=== PATIENT | female | born 1930 | race Caucasian/White ===

== ENCOUNTER 2018-09-23 03:15 | Inpatient (IN) | payer MEDICARE ==
[2018-09-23] MEDS ORDERED: HYDROcodone/APAP 5-325MG 1 EACH TAB PO STA (03:49)
--- NOTE | 2018-09-23 03:56 | ED ---
Back Pain HPI - General Chief Complaint: Back Pain/Injury Stated Complaint: fall Time Seen by Provider: 09/23/18 03:25 Source: patient, family Limitations: no limitations - History of Present Illness Initial Comments: This patient is a 88-year-old woman who presents to be evaluated for mid and low back pain. The patient states that she has had is pains for approximately 5 years, since she had a fall on a treadmill. She has been having worsening pain over the past few months but then had a fall on Saturday and since that time her activity at home has been limited due to the pain. The patient indicates mid and low back pain that is worse if she attempts to stand or move. She therefore has not been getting up even to use the bathroom. She is requiring family assistance for help. The patient has not had any change in urination or bowel movements, and she is not having any new weakness or numbness of the legs. She does state that she has some chronic right leg radicular type pain. The patient is on buprenorphine patch and takes Tylenol but the pain continues. No fever. MD Complaint: back pain, fall Onset/Timin -: days(s) Similar Symptoms Previously: Yes Place: home Radiation: right leg Severity: severe Quality: aching Consistency: constant Improves With: immobilization Worsens With: movement, walking Context: fall Associated Symptoms: denies other symptoms - Related Data Allergies Allergy/AdvReac Type Severity Reaction Status Date / Time estradiol [From Estrace] Allergy Dyspnea Verified 09/23/18 03:28 Review of Systems ROS Statement: Those systems with pertinent positive or pertinent negative responses have been documented in the HPI. ROS Other: All systems not noted in ROS Statement are negative. Constitutional: Denies: fever, chills, weakness Respiratory: Denies: cough, dyspnea Cardiovascular: Denies: chest pain, edema Gastrointestinal: Reports: constipation (Chronic). Denies: abdominal pain, vomiting, diarrhea Genitourinary: Denies: dysuria, frequency, hematuria Musculoskeletal: Reports: as per HPI, back pain Skin: Denies: rash Neurological: Denies: headache, weakness, numbness Past Medical History Past Medical History: Diabetes Mellitus, Hyperlipidemia, Hypertension, Thyroid Disorder Additional Past Medical History / Comment(s): parkinson's, History of Any Multi-Drug Resistant Organisms: None Reported Past Surgical History: Appendectomy, Cholecystectomy, Hysterectomy Past Psychological History: No Psychological Hx Reported Smoking Status: Never smoker Past Alcohol Use History: None Reported Past Drug Use History: None Reported General Exam Limitations: no limitations General appearance: alert, in no apparent distress Head exam: Present: atraumatic, normocephalic Eye exam: Present: normal appearance. Absent: scleral icterus, conjunctival injection Neck exam: Present: normal inspection, full ROM. Absent: tenderness Respiratory exam: Present: normal lung sounds bilaterally. Absent: respiratory distress, wheezes, rales, rhonchi, stridor Cardiovascular Exam: Present: regular rate, normal rhythm, normal heart sounds. Absent: systolic murmur, diastolic murmur, rubs, gallop GI/Abdominal exam: Present: soft. Absent: distended, tenderness, guarding, rebound Extremities exam: Present: normal inspection, normal capillary refill. Absent: pedal edema, calf tenderness Back exam: Present: vertebral tenderness. Absent: CVA tenderness (R), CVA tenderness (L) Skin exam: Present: warm, dry, intact, normal color. Absent: rash Course Vital Signs 09/23/18 03:16 Temperature 97.9 F Pulse Rate 75 Respiratory 20 Rate Blood Pressure 146/84 O2 Sat by Pulse 96 Oximetry Medical Decision Making - Lab Data Result diagrams: 09/23/18 05:00 09/23/18 05:00 Lab Results 09/23/18 09/23/18 Range/Units 05:00 05:00 WBC 9.6 (3.8-10.6) k/uL RBC 4.02 (3.80-5.40) m/uL Hgb 12.8 (11.4-16.0) gm/dL Hct 37.4 (34.0-46.0) % MCV 93.0 (80.0-100.0) fL MCH 31.7 (25.0-35.0) pg MCHC 34.1 (31.0-37.0) g/dL RDW 13.9 (11.5-15.5) % Plt Count 158 (150-450) k/uL Neutrophils % 74 % Lymphocytes % 15 % Monocytes % 7 % Eosinophils % 1 % Basophils % 0 % Neutrophils # 7.1 (1.3-7.7) k/uL Lymphocytes # 1.5 (1.0-4.8) k/uL Monocytes # 0.6 (0-1.0) k/uL Eosinophils # 0.1 (0-0.7) k/uL Basophils # 0.0 (0-0.2) k/uL Sodium 132 L (137-145) mmol/L Potassium 4.5 (3.5-5.1) mmol/L Chloride 100 (98-107) mmol/L Carbon Dioxide 24 (22-30) mmol/L Anion Gap 8 mmol/L BUN 41 H (7-17) mg/dL Creatinine 1.57 H (0.52-1.04) mg/dL Est GFR (CKD-EPI)AfAm 34 (>60 ml/min/1.73 sqM) Est GFR (CKD-EPI)NonAf 30 (>60 ml/min/1.73 sqM) Glucose 167 H (74-99) mg/dL Calcium 9.3 (8.4-10.2) mg/dL Disposition Clinical Impression: Thoracic back pain, T11 vertebral fracture Disposition: ADMITTED IP TO THIS HOSP Condition: Fair Referrals: Rory Woo MD [Primary Care Provider] - 1-2 days
--- NOTE | 2018-09-23 04:31 | CT ---
EXAMINATION TYPE: CT thor lumbar spine wo con DATE OF EXAM: 09/23/2018 COMPARISON: 06/26/1710 HISTORY: back pain after fall CT DLP: 1045 mGycm Automated exposure control for dose reduction was used. FINDINGS: There is osteopenia. There is 20% anterior wedging of L4 vertebral body. This appears old. There is 5 0% anterior wedging of T12 vertebral body. There is 20% wedging of T11. T11 fracture could be acute. T12 fracture is probably old.. There is no paraspinal mass. There is nondisplaced fracture of the pos terior right ninth rib at the costovertebral junction. There is cortical buckling of right posterior 11th rib at the costovertebral junction that could be old. There is 15% wedging of T3 vertebra that appears old. There is L5 spondylolysis with a minimal 5 mm L5-S1 spondylolisthesis. IMPRESSION: MULTIPLE COMPRESSION FRACTURES ABOVE. T11 FRACTURE COULD BE AN ACUTE FRACTURE. ACUTE FRACTURE OF T HE RIGHT POSTERIOR NINTH RIB AT THE COSTOVERTEBRAL JUNCTION.
[2018-09-23 05:47] LABS: Calcium 9.3 mg/dL (8.4-10.2); Potassium 4.5 mmol/L (3.5-5.1)
[2018-09-23 05:53] LABS: Basophils % (A) 0 %; Eosinophils # (A) 0.1 k/uL (0-0.7); Eosinophils % (A) 1 %; HCT 37.4 % (34.0-46.0); HGB 12.8 gm/dL (11.4-16.0); Lymphocytes # (A) 1.5 k/uL (1.0-4.8); Lymphocytes % (A) 15 %; MCH 31.7 pg (25.0-35.0); MCHC 34.1 g/dL (31.0-37.0); Mean Platelet Volume 8.6; Monocytes # (A) 0.6 k/uL (0-1.0); Monocytes % (A) 7 %; Neutrophils # (A) 7.1 k/uL (1.3-7.7); Neutrophils % (A) 74 %; Platelet Count 158 k/uL (150-450); RBC 4.02 m/uL (3.80-5.40); RDW 13.9 % (11.5-15.5); WBC 9.6 k/uL (3.8-10.6)
[2018-09-23] MEDS ORDERED: NALOXONE 0.4 MG/ML 1 ML VIAL IV PRN (06:08)
[2018-09-23] MEDS ORDERED: MORPHINE SULFATE 4 MG/ML SYRINGE IV PRN (06:11)
[2018-09-23] MEDS ORDERED: SODIUM CHLORIDE 0.9% 1,000 ML IV SCH (06:15)
[2018-09-23 08:23] LABS: Amorphous Sediment,Urine Occasional /hpf; Appearance,Urine Turbid (Clear); Bacteria,Urine Occasional /hpf; Bilirubin,Urine Negative (Negative); Blood,Urine Negative (Negative); Color,Urine Yellow; Glucose,Urine (UA) Negative (Negative); Ketones,Urine Negative (Negative); Leukocyte Esterase,Urine Small (Negative); Mucus,Urine Rare /hpf; Nitrite,Urine Positive (Negative); Protein,Urine Trace (Negative); Specific Gravity,Urine 1.015 (1.001-1.035); Squamous Epithelial Cell,Urine 1 /hpf (0-4); Triple Phosphate Crystal,Urine Few /hpf; Urobilinogen,Urine <2.0 mg/dL (<2.0); WBC,Urine 3 /hpf (0-5)
[2018-09-23] MEDS: HYDROcodone/APAP 5-325MG 1 EACH TAB PO PRN ×2 (10:43→16:31)
[2018-09-23] MEDS ORDERED: CARBIDOPA-LEVODOPA ER 50-200MG 1 EACH TABLET.ER PO SCH (13:00)
[2018-09-23] MEDS ORDERED: LORazepam 0.5 MG TAB PO PRN (13:00)
[2018-09-23] MEDS ORDERED: CARBIDOPA-LEVODOPA 25-100 MG 1 EACH TAB PO SCH (13:00)
[2018-09-23] MEDS: PROPRANOLOL 40 MG TAB PO SCH (15:41)
[2018-09-23] MEDS: AMANTADINE HCL 100 MG CAP PO SCH (15:41)
[2018-09-23] MEDS: LEVOTHYROXINE 50 MCG TAB PO SCH (15:42)
[2018-09-23 17:15] LABS: Glucose,Whole Blood 153 mg/dL (75-99)
[2018-09-23 20:29] LABS: Glucose,Whole Blood 211 mg/dL (75-99)
[2018-09-23] MEDS ORDERED: LACTULOSE 20 GM/30 ML CUP PO PRN (21:58)
[2018-09-23] MEDS ORDERED: MELATONIN 3 MG TABLET PO PRN (21:58)
[2018-09-23] MEDS ORDERED: MAGNESIUM HYDROXIDE 2,400 MG/10 ML CUP PO PRN (21:58)
[2018-09-23] MEDS ORDERED: ALPRAZolam 0.25 MG TAB PO PRN (21:58)
[2018-09-23] MEDS ORDERED: ACETAMINOPHEN TAB 325 MG TAB PO PRN (21:58)
[2018-09-23] MEDS ORDERED: ONDANSETRON 4 MG/2 ML VIAL IVP PRN (21:58)
[2018-09-23] MEDS: ATORVASTATIN 10 MG TAB PO SCH (22:10)
[2018-09-23] MEDS: CARBIDOPA-LEVODOPA 25-100 MG 1 EACH TAB PO SCH (22:10)
[2018-09-23] MEDS: CARBIDOPA-LEVODOPA ER 50-200MG 1 EACH TABLET.ER PO SCH (22:10)
[2018-09-23] MEDS: BACLOFEN 10 MG TAB PO SCH (22:14)
[2018-09-23] MEDS: traMADol 50 MG TAB PO SCH (22:14)
[2018-09-23] MEDS: ACETAMINOPHEN TAB 325 MG TAB PO SCH (22:14)
[2018-09-23] MEDS: LACTATED RINGERS 1,000 ML IV SCH (22:44)
--- NOTE | 2018-09-23 23:53 | HP ---
HISTORY AND PHYSICAL DATE OF ADMISSION: September 23, 2018. DATE OF SERVICE: September 23, 2018. PRESENTING COMPLAINT: Back pain. HISTORY OF PRESENTING COMPLAINT: This is a very pleasant 88-year-old patient of Dr. Woo. Chronic stable medical conditions include hypothyroid, Parkinson disease, osteoarthritis, chronic kidney disease stage III. The patient fell about 5 years ago, has been having back pain. The patient again fell about 5 to 6 days ago, fell backwards. There was no loss of consciousness, having increasing pain in the lower back, not able to ambulate much. The patient does make urine. Does have a bowel movement. Patient is tolerating a diet. No fever. No chills. Because of increased incapacitation, patient is brought in by the daughter. The patient otherwise normally uses a walker. CT scan showed fractures of multiple age maybe one being acute at T11. The patient has used a brace in the past, but does not has not used one for quite a while. REVIEW OF SYSTEMS: CONSTITUTIONAL: Tired. HEENT decreased hearing. RESPIRATORY: None. CARDIOVASCULAR: None. GENITOURINARY: None. MUSCULOSKELETAL: Pain in several joints including the back. DERMATOLOGICAL, HEMATOLOGIC, LYMPHATICS: none. PSYCHIATRY none. NEUROLOGICAL: None. MUSCULOSKELETAL: Tremors. PAST MEDICAL HISTORY: Past medical history of hyperlipidemia, osteoarthritis, hyperthyroid, chronic right leg complaints, chronic kidney disease. SOCIAL HISTORY: Does use a walker. Resides with daughter and son-in-law. No smoking. Alcohol rarely. FAMILY HISTORY: Father had heart problems in his 80s. HOME MEDICATIONS: Vitamin E 1000 units p.o. daily, vitamin D3 1000 units p.o. daily, Inderal 40 mg before lunch. Synthroid 50 mcg a day, Gingko 60 mg p.o. daily. Ativan 0.5 daily p.r.n. Sinemet CR 50/200 one tablet p.o. a.c. b.i.d. and 20/100 2 tablets p.o. b.i.d., Lipitor 110 mg p.o. q.h.s. 5 mcg an hour 1 patch topical Fridays, Symmetrel 100 mg p.o. daily. ALLERGIES: ESTRACE. PHYSICAL EXAMINATION: VITAL SIGNS: Vital signs on presentation, temperature 97.7, on examination temperature 97.9, pulse 95, respiration 20, blood pressure 146/84, pulse ox 96% on room air. GENERAL APPEARANCE: Average build, lying in bed, awake. EYES: Pupils equal, conjunctivae normal. HEENT: External appearance of nose and ears normal. Oral cavity normal. Decreased hearing. NECK JVD not raised. Mass not palpable. RESPIRATORY: Effort normal. LUNGS: Slightly decreased breath sounds. CARDIOVASCULAR: 1st and 2nd sounds normal. No edema. ABDOMEN: Soft, nontender. Liver and spleen not palpable. LYMPHATICS: No lymph nodes palpable in the neck and axilla. PSYCHIATRY: Alert and oriented x3. Mood and affect slightly anxious. NEUROLOGICAL: The patient has got tremors, some bradykinesia. MUSCULOSKELETAL: Severe osteoarthritis, especially hands and knees. NEUROLOGICAL: Pupils equal. No facial asymmetry. Tremors are present. The patient is barely able to lift the legs off the bed, she has tenderness over the spine. INVESTIGATIONS: White count 9.6, hemoglobin 12.8, platelets normal. Potassium 4.5, BUN 41, creatinine 1.57. Accu-Cheks 153, 211. Thoracolumbar spine CT shows fractures at multiple sites, may be an acute one at T11 and also possible right posterior ninth rib. ASSESSMENT: 1. Acute T11 fracture secondary to fall. 2. Chronic multiple fractures of the lumbar body. 3. Baseline gait dysfunction uses a walker. 4. Hyperlipidemia. 5. Primary osteoarthritis. 6. Hypothyroid. PLAN: Given the patient's age and fractures chronic at multiple levels the patient probably will not be a surgical candidate for pain and symptom control. We will use a K-pad, baclofen for muscle spasm and Ultram for pain control and now including Tylenol. This was discussed with the patient. Also get opinion from Dr. King of Orthopedics. PT/OT also been consulted. Other home medications to be resumed. Care was discussed. Questions were answered. Copy to Dr. Woo. MMODL / GERIN: [id number] /
[2018-09-24] MEDS: ACETAMINOPHEN TAB 325 MG TAB PO SCH ×4 (00:05→17:15)
[2018-09-24] MEDS: LEVOTHYROXINE 50 MCG TAB PO SCH (06:02)
[2018-09-24 07:50] LABS: Glucose,Whole Blood 150 mg/dL (75-99)
[2018-09-24] MEDS: AMANTADINE HCL 100 MG CAP PO SCH (08:08)
[2018-09-24] MEDS: BACLOFEN 10 MG TAB PO SCH ×3 (08:08→17:15)
[2018-09-24] MEDS: ENOXAPARIN 30 MG/0.3 ML SYRINGE SQ SCH (08:08)
[2018-09-24] MEDS: CARBIDOPA-LEVODOPA ER 50-200MG 1 EACH TABLET.ER PO SCH ×2 (08:08→17:15)
[2018-09-24] MEDS: CARBIDOPA-LEVODOPA 25-100 MG 1 EACH TAB PO SCH ×2 (08:08→17:15)
[2018-09-24] MEDS: VITAMIN E (DL,TOCOPHERYL ACET) 400 UNIT CAP PO SCH (08:08)
[2018-09-24] MEDS: traMADol 50 MG TAB PO SCH ×4 (08:09→22:41)
[2018-09-24] MEDS: LACTATED RINGERS 1,000 ML IV SCH ×2 (08:12→17:24)
[2018-09-24 09:37] LABS: Calcium 9.1 mg/dL (8.4-10.2); Potassium 4.4 mmol/L (3.5-5.1)
[2018-09-24 11:40] LABS: Glucose,Whole Blood 188 mg/dL (75-99)
[2018-09-24] MEDS: PROPRANOLOL 40 MG TAB PO SCH (12:19)
--- NOTE | 2018-09-24 14:28 | P.CNOR ---
<Karel Vital - Last Filed: 09/24/18 14:22> History of Present Illness - [facility] Consult date: 09/24/18 Requesting physician: Balbir Pugh Consult reason: fracture (T11 compression fracture), back pain (Acute on chronic back pain; thoracic back pain) History of present illness: Patient is a very pleasant 88-year-old female who is a poor historian who is seen and examined the bedside for further evaluation of significant back pain. She is known have chronic back pain. She states she does not know of previously being diagnosed with any fractures within her spine. Her pain is most significant at the thoracic spine. She has difficulty with any mobility or increased activities due to exacerbation of back pain. She denies any pain at the ribs. She states her pain is exacerbated with coughing and sneezing. Patient did have a recent fall and has had exacerbation of thoracic pain since that time. She admits to a resting tremor which she states she's had for a significant period of time. She does have a history of multiple chronic stable medical diagnoses including hypothyroid, Parkinson's disease, osteoarthritis, and chronic kidney disease stage III. Past Medical History Past Medical History: Diabetes Mellitus, Hyperlipidemia, Osteoarthritis (OA), Renal Disease, Thyroid Disorder Additional Past Medical History / Comment(s): Occasional confusion, mid and low back chronic pain since fall 5 yrs ago, chronic R leg pain, NIDDM type II, hypothyroid, CKD-mild, arthritis in her back. History of Any Multi-Drug Resistant Organisms: None Reported Past Surgical History: Appendectomy, Cholecystectomy, Hysterectomy Additional Past Surgical History / Comment(s): Colonoscopies-normal, bilateral cataracts removed. Additional Past Anesthesia/Blood Transfusion Reaction / Comm: Anesthesia makes pt have increased weakness for awhile. Pt has received blood in past without reaction. Smoking Status: Never smoker - Past Family History Father Additional Family Medical History / Comment(s): Father had heart trouble and lived to be 87yrs. Mother Family Medical History: No Reported History Additional Family Medical History / Comment(s): Mother was healthy and lived to be 84 yrs old. Medications and Allergies Home Medications Medication Instructions Recorded Confirmed Type Amantadine HCl [Symmetrel] 100 mg PO QAM 09/23/18 09/23/18 History Atorvastatin Calcium [Lipitor] 10 mg PO HS 09/23/18 09/23/18 History Buprenorphine [Buprenorphine 5 1 patch TOPICAL FR 09/23/18 09/23/18 History MCG/HR] Carbidopa-Levodopa 25-100 mg 2 tab PO AC-BID 09/23/18 09/23/18 History [Sinemet 25-100 mg] Carbidopa-Levodopa ER 50-200Mg 1 tab PO AC-BID 09/23/18 09/23/18 History [Sinemet CR 50-200 mg] Cholecalciferol [Vitamin D3] 1,000 unit PO DAILY 09/23/18 09/23/18 History Ginkgo Biloba [place] Extract [Ginkgo] 60 mg PO DAILY 09/23/18 09/23/18 History LORazepam [Ativan] 0.5 mg PO DAILY PRN 09/23/18 09/23/18 History Levothyroxine Sodium [Synthroid] 50 mcg PO DAILY 09/23/18 09/23/18 History Propranolol [Inderal] 40 mg PO PC-LUNCH 09/23/18 09/23/18 History Vitamin E 1,000 unit PO DAILY 09/23/18 09/23/18 History Allergies Allergy/AdvReac Type Severity Reaction Status Date / Time estradiol [From Estrace] Allergy Dyspnea Verified 09/23/18 07:43 Physical Examination Physical exam: Patient is awake and alert; patient is a poor historian Vital signs stable Good chest excursion with deep inspiration and expiration Abdomen soft nontender Examination of lumbar spine reveals skin is intact with no abrasions, lacerations, or bruises; no erythema, purulence or signs of infection Pain with palpation along the midline of the spine at approximately the thoracolumbar junction Dorsiflexion, plantarflexion, and extensor hallucis longus positive sustained bilaterally Lower extremity strength reduced throughout range of motion bilaterally Significant difficulty with lifting legs independently off the bed bilaterally No lower extremity hyperreflexia bilaterally No signs or symptoms of DVT; no calf pain No pain with internal and external rotation of the hips bilaterally Neurovascularly intact Evidence of resting left upper extremity tremor Results Pertinent studies: CT of the thoracic and lumbar spines: Evidence of osteopenia; T3 wedging with 15 % height loss which appears chronic; T11 compression fracture deformity with approximately 20% height loss which could be acute in nature; T12 compression fracture with approximately 50% height loss is most likely chronic; L4 compression fracture deformity with 20% height loss which appears chronic; osteopenia; nondisplaced fracture of the posterior right 9th rib at the costovertebral junction; cortical buckling of the right posterior 11th rib at the costovertebral junction that could be chronic; L5 spondylolysis with L5-S1 minimal spondylolisthesis - Labs Labs: Abnormal Lab Results - Last 24 Hours (Table) 09/23/18 09/23/18 09/24/18 Range/Units 17:13 20:28 07:29 Sodium (137-145) mmol/L BUN (7-17) mg/dL Creatinine (0.52-1.04) mg/dL Glucose (74-99) mg/dL POC Glucose (mg/dL) 153 H 211 H 150 H (75-99) mg/dL 09/24/18 Range/Units 08:53 Sodium 134 L (137-145) mmol/L BUN 35 H (7-17) mg/dL Creatinine 1.13 H (0.52-1.04) mg/dL Glucose 147 H (74-99) mg/dL POC Glucose (mg/dL) (75-99) mg/dL H & H 09/23/18 Range/Units 05:00 Hgb 12.8 (11.4-16.0) gm/dL Hct 37.4 (34.0-46.0) % Result Diagrams: 09/23/18 05:00 09/24/18 08:53 Assessment and Plan Assessment: Assessment: Acute on chronic thoracic back pain Inability ambulate due to pain T11 compression fracture deformity may be acute in nature given the patient's exacerbation of thoracic pain and recent fall that correlate with imaging findings Multiple thoracolumbar compression fracture deformities of indeterminate age at T3, T11, T12, L4 Nondisplaced fracture of the posterior right 9th rib at the costovertebral junction Cortical buckling of the right posterior 11th rib at the costovertebral junction that could be chronic L5 spondylolysis L5-S1 minimal spondylolisthesis Osteopenia History of Parkinson's disease, hypothyroidism, and chronic kidney disease stage III (1) Unable to ambulate Current Visit: Yes Status: Acute Code(s): R26.2 - DIFFICULTY IN WALKING, NOT ELSEWHERE CLASSIFIED SNOMED Code(s): 649536451 (2) Compression fracture of thoracic vertebra Current Visit: Yes Status: Acute Code(s): S22.000A - WEDGE COMPRESSION FRACTURE OF UNSP THORACIC VERTEBRA, INIT SNOMED Code(s): 079665264 (3) Compression fracture of L4 vertebra Current Visit: Yes Status: Acute Code(s): S32.040A - WEDGE COMPRESSION FRACTURE OF FOURTH LUMBAR VERTEBRA, INIT SNOMED Code(s): 278746921 (4) Lumbar spondylolysis Current Visit: Yes Status: Acute Code(s): M43.06 - SPONDYLOLYSIS, LUMBAR REGION SNOMED Code(s): 478450381 (5) Spondylolisthesis of lumbosacral region Current Visit: Yes Status: Acute Code(s): M43.17 - SPONDYLOLISTHESIS, LUMBOSACRAL REGION SNOMED Code(s): 376109603 (6) Ribs, multiple fractures Current Visit: Yes Status: Acute Code(s): S22.49XA - MULTIPLE FRACTURES OF RIBS, UNSP SIDE, INIT FOR CLOS FX SNOMED Code(s): 4890093 (7) Intractable back pain Current Visit: Yes Status: Acute Code(s): M54.9 - DORSALGIA, UNSPECIFIED SNOMED Code(s): 550136238 (8) History of Parkinson's disease Current Visit: Yes Status: Acute Code(s): Z86.69 - PERSONAL HISTORY OF DIS OF THE NERVOUS SYS AND SENSE ORGANS SNOMED Code(s): 478690377 (9) History of hypothyroidism Current Visit: Yes Status: Acute Code(s): Z86.39 - PERSONAL HISTORY OF ENDO , NUTRITIONAL AND METABOLIC DISEASE SNOMED Code(s): 250668743 (10) History of chronic kidney disease Current Visit: Yes Status: Acute Code(s): Z87.448 - PERSONAL HISTORY OF OTHER DISEASES OF URINARY SYSTEM SNOMED Code(s): 421948506 (11) T11 vertebral fracture Current Visit: Yes Status: Acute Code(s): S22.089A - UNSP FRACTURE OF T11- T12 VERTEBRA, INIT FOR CLOS FX SNOMED Code(s): 209399149 (12) Thoracic back pain Current Visit: Yes Status: Acute Code(s): M54.6 - PAIN IN THORACIC SPINE SNOMED Code(s): 037073318 Plan: Plan: 1. After reviewing of imaging, physical examination of the patient, and further discussion with the patient, we will currently plan to have the patient work through conservative treatment. She does have multiple compression fracture deformities at T3, T11, T12, and L4 of indeterminate age but patient does have evidence of changes in which the T11 fracture may be acute. The patient is experiencing increased pain at approximately the thoracolumbar junction. She is known have chronic pain but has had an exacerbation of acute on chronic pain with significant difficulty with movement of the spine and ambulation following her recent fall approximately 5-6 days ago. Her pain is exacerbated with coughing and sneezing. She has difficulty moving her bilateral lower extremities due to pain. She does not ambulate much. Patient is somewhat of a poor historian. She states she is not known have previous compression fracture deformities at her spine. At this time, we'll plan to order a Spinomed TLSO brace. A prescription has been written for this brace and provide his case management. Once this brace is delivered and fitted appropriately, patient should wear this brace while sitting upright at greater than 45, during ambulation, while working physical therapy, and during increase activities. Brace does not have to be worn while lying in bed or while bathing. Once this brace is been delivered and fitted appropriately, patient is clear for discharge from an orthopedic spine standpoint. Following discharge, patient follow up with Karel Vital PA-C or Dr. Macho King at [facility] in approximately 2-3 weeks for further evaluation 2. Medicine will continue following the patient for her other medical diagnoses. 3. Continue medications for pain control as prescribed 4. Patient has been discussed in detail with Dr. Macho King and he agrees with this plan Time with Patient: Less than 30 <Darío King - Last Filed: 09/25/18 11:06> Physical Examination Osteopathic Statement: *. No significant issues noted on an osteopathic structural exam other than those noted in the History and Physical/Consult. Results - Labs Labs: Abnormal Lab Results - Last 24 Hours (Table) 09/24/18 09/24/18 09/24/18 Range/Units 11:33 17:05 20:05 Sodium (137-145) mmol/L BUN (7-17) mg/dL Glucose (74-99) mg/dL POC Glucose (mg/dL) 188 H 121 H 126 H (75-99) mg/dL Total Protein (6.3-8.2) g/dL Albumin (3.5-5.0) g/dL 09/24/18 09/25/18 09/25/18 Range/Units 21:02 07:20 08:14 Sodium 132 L 134 L (137-145) mmol/L BUN 32 H 30 H (7-17) mg/dL Glucose 139 H 124 H (74-99) mg/dL POC Glucose (mg/dL) 115 H (75-99) mg/dL Total Protein 6.1 L (6.3-8.2) g/dL Albumin 3.3 L (3.5-5.0) g/dL H & H 09/23/18 09/24/18 Range/Units 05:00 21:02 Hgb 12.8 12.5 (11.4-16.0) gm/dL Hct 37.4 38.8 (34.0-46.0) % Result Diagrams: 09/24/18 21:02 09/25/18 08:14 Assessment and Plan Plan: Imaging in the case reviewed. I agree with the TLSO brace. We'll see if she is able tolerate it along with her rib fracture. We do not plans for surgical intervention and she should be treated conservative pain control and bracing. It is okay for her to mobilize her standpoint and from aspine standpoint it is okay for him to be discharged when she is comfortable from medicine. We can follow-up with her in 2-3 weeks for recheck evaluation as outpatient.
[2018-09-24 17:15] LABS: Glucose,Whole Blood 121 mg/dL (75-99)
[2018-09-24 20:08] LABS: Glucose,Whole Blood 126 mg/dL (75-99)
[2018-09-24 21:18] LABS: Basophils % (A) 1 %; Eosinophils # (A) 0.2 k/uL (0-0.7); Eosinophils % (A) 3 %; HCT 38.8 % (34.0-46.0); HGB 12.5 gm/dL (11.4-16.0); Lymphocytes # (A) 1.2 k/uL (1.0-4.8); Lymphocytes % (A) 16 %; MCH 30.2 pg (25.0-35.0); MCHC 32.3 g/dL (31.0-37.0); MCV 93.5 fL (80.0-100.0); Mean Platelet Volume 7.6; Monocytes # (A) 0.4 k/uL (0-1.0); Monocytes % (A) 5 %; Neutrophils # (A) 5.4 k/uL (1.3-7.7); Neutrophils % (A) 73 %; Platelet Count 195 k/uL (150-450); RBC 4.15 m/uL (3.80-5.40); RDW 13.7 % (11.5-15.5); WBC 7.4 k/uL (3.8-10.6)
--- NOTE | 2018-09-24 21:29 | CT ---
EXAMINATION TYPE: CT brain wo con DATE OF EXAM: 09/24/2018 COMPARISON: None HISTORY: Change in mental status CT DLP: 1144.7 mGycm Automated exposure control for dose reduction was used. FINDINGS: There is cerebral cortical atrophy. There is no mass effect nor midline shift. There is no sign of in tracranial hemorrhage. Calvarium is intact. There is mild hypodensity in the periventricular white ma tter. There is 1 cm mucous retention cyst left maxillary sinus. IMPRESSION: NO ACUTE INTRACRANIAL ABNORMALITY. CEREBRAL ATROPHY AND MILD CHRONIC SMALL VESSEL ISCHEMIA.
[2018-09-24 21:33] LABS: Albumin 3.3 g/dL (3.5-5.0); Calcium 9.1 mg/dL (8.4-10.2); Potassium 4.5 mmol/L (3.5-5.1); Total Bilirubin 0.6 mg/dL (0.2-1.3); Total Protein 6.1 g/dL (6.3-8.2)
[2018-09-24] MEDS: ATORVASTATIN 10 MG TAB PO SCH (22:42)
[2018-09-25] MEDS: BACLOFEN 10 MG TAB PO SCH (00:51)
[2018-09-25] MEDS: ACETAMINOPHEN TAB 325 MG TAB PO SCH ×4 (01:09→17:46)
[2018-09-25] MEDS: LACTATED RINGERS 1,000 ML IV SCH ×2 (06:23→12:28)
[2018-09-25] MEDS: LEVOTHYROXINE 50 MCG TAB PO SCH (06:25)
--- NOTE | 2018-09-25 06:58 | PN ---
PROGRESS NOTE DATE OF SERVICE: 09/24/2018 PRESENT COMPLAINT: Acute on chronic back pain. INTERVAL HISTORY: This patient has multiple medical problems, presented with increasing low back pain. Found to have an acute vertebral fracture also. Daughter is at the bedside when I saw this patient this afternoon. The pain is better controlled, but the patient is more tired. REVIEW OF SYSTEMS: Difficult to do as the patient is talking less. PHYSICAL EXAMINATION: Temperature 96.8 pulse82, respiration 20, blood pressure 130/53, pulse ox 97% on room air. GENERAL APPEARANCE: Lying in bed, awake, tired-appearing. EYES: Pupils equal. Conjunctivae normal. NECK: JVD not raised. Mass not palpable. Respiratory effort increased. LUNGS: Decreased breath sounds. CARDIOVASCULAR: First and second sounds. No edema. ABDOMEN: Soft, nontender. Liver and spleen not palpable. PSYCHIATRY: The patient is awake, talking, less. INVESTIGATIONS: BUN 35, creatinine 1.13. ASSESSMENT: 1. Acute T11 fracture secondary to fall. 2. Chronic multiple fractures, lumbar body. 3. Baseline gait dysfunction using a walker. 4. Hyperlipidemia. 5. Primary osteoarthritis. 6. Hypothyroid. 7. Possible acute metabolic encephalopathy from pain medications. 8. Chronic idiopathic Parkinson's disease. 9. Acute renal failure, likely prerenal from poor oral intake. Creatinine has come down from 1.57 to 0.98. PLAN: Did have a talk with the patient's daughter at the bedside. She wants to take the patient home. Awaiting for the brace. Overall prognosis is guarded. We will see how the patient does. MMODL / IJN: [id number] /
[2018-09-25 07:22] LABS: Glucose,Whole Blood 115 mg/dL (75-99)
[2018-09-25] MEDS: ENOXAPARIN 30 MG/0.3 ML SYRINGE SQ SCH ×2 (08:14→08:15)
[2018-09-25] MEDS: CARBIDOPA-LEVODOPA 25-100 MG 1 EACH TAB PO SCH ×2 (08:15→17:46)
[2018-09-25] MEDS: CARBIDOPA-LEVODOPA ER 50-200MG 1 EACH TABLET.ER PO SCH ×2 (08:16→17:45)
[2018-09-25] MEDS: AMANTADINE HCL 100 MG CAP PO SCH (08:16)
[2018-09-25] MEDS: VITAMIN E (DL,TOCOPHERYL ACET) 400 UNIT CAP PO SCH (08:17)
[2018-09-25] MEDS: traMADol 50 MG TAB PO SCH ×3 (08:18→17:45)
[2018-09-25] MEDS ORDERED: BACLOFEN 10 MG TAB PO SCH (09:00)
[2018-09-25 09:25] LABS: Calcium 9.3 mg/dL (8.4-10.2); Potassium 4.6 mmol/L (3.5-5.1)
[2018-09-25 10:30] VITALS: BMI 24.8
[2018-09-25 12:02] LABS: Glucose,Whole Blood 123 mg/dL (75-99)
[2018-09-25] MEDS: PROPRANOLOL 40 MG TAB PO SCH (12:27)
[2018-09-25] MEDS ORDERED: BACLOFEN 10 MG TAB PO PRN (14:47)
[2018-09-25 17:20] LABS: Glucose,Whole Blood 151 mg/dL (75-99)
[2018-09-25 20:52] LABS: Glucose,Whole Blood 178 mg/dL (75-99)
[2018-09-25] MEDS: ATORVASTATIN 10 MG TAB PO SCH (21:02)
--- NOTE | 2018-09-26 00:43 | PN ---
PROGRESS NOTE DATE OF SERVICE: September 25, 2018. PRESENTING COMPLAINT: Acute on chronic back pain. INTERVAL HISTORY: Patient has multiple medical problems presented with increasing acute low back pain with acute vertebral fracture. The patient is put on baclofen. Patient became rather lethargic yesterday. Did a CT scan that came back negative for stroke. The patient is felt to be metabolic encephalopathy from the baclofen that was held. This morning, when I saw the patient, the patient started to turn around. Answering simple questions. Several family members were present. The patient ate a little bit. REVIEW OF SYSTEMS: Difficult to obtain because of patient's mental status. MEDICATIONS: Current medications: Baclofen was changed to p.r.n. Also getting IV fluids. PHYSICAL EXAMINATION: VITAL SIGNS: Temperature 97.8, pulse 69, respiratory 18, blood pressure 143/67, pulse ox 93 percent on 2 L. GENERAL APPEARANCE: Lying in bed, lethargic but started to answer questions. EYES: Pupil's equal. Conjunctivae normal. NECK JVD unable to assess. Mass not palpable. RESPIRATORY: Effort normal. LUNGS: Decreased breath sounds. CARDIOVASCULAR: 1st and 2nd sounds normal. No edema. ABDOMEN: Soft, nontender. Liver and spleen not palpable. PSYCHIATRY: Lethargic but answers some simple questions. INVESTIGATIONS: Potassium 30, creatinine 0.88. ASSESSMENT: 1. Acute T11 fracture secondary to fall. 2. 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 3. Baseline gait dysfunction using a walker. 4. Hyperlipidemia. 5. Primary osteoarthritis. 6. Hypothyroid. 7. Acute metabolic encephalopathy from pain medications and baclofen. 8. Acute idiopathic Parkinson disease. 9. Acute renal failure prerenal from poor oral intake, now corrected. PLAN: I had a lengthy talk with the patient and several family members at the bedside. The patient's baclofen has been discontinued, changed to p.r.n. Do expect it to turn around by 24 hours. I did explain to the family that physical therapy at this stage could be more hurtful. The patient's daughter who has worked at a intermediate before really wants to take her back home. The hospital bed is being arranged for the same. Prognosis remains guarded. Total time spent today was about 40 minutes with over 25 minutes of discussion. MMODL / IJN: [id number] /
[2018-09-26] MEDS: traMADol 50 MG TAB PO SCH ×3 (02:43→13:44)
[2018-09-26] MEDS: ACETAMINOPHEN TAB 325 MG TAB PO SCH ×3 (02:44→10:42)
[2018-09-26] MEDS: LACTATED RINGERS 1,000 ML IV SCH ×2 (03:10→10:46)
[2018-09-26] MEDS: LEVOTHYROXINE 50 MCG TAB PO SCH (05:24)
[2018-09-26 06:38] VITALS: PULSE 71
[2018-09-26 07:20] LABS: Glucose,Whole Blood 147 mg/dL (75-99)
[2018-09-26] MEDS: AMANTADINE HCL 100 MG CAP PO SCH (08:13)
[2018-09-26] MEDS: CARBIDOPA-LEVODOPA ER 50-200MG 1 EACH TABLET.ER PO SCH ×2 (08:13→16:46)
[2018-09-26] MEDS: VITAMIN E (DL,TOCOPHERYL ACET) 400 UNIT CAP PO SCH (08:13)
[2018-09-26] MEDS: CARBIDOPA-LEVODOPA 25-100 MG 1 EACH TAB PO SCH ×2 (08:14→16:46)
[2018-09-26 08:36] LABS: Calcium 8.9 mg/dL (8.4-10.2); Potassium 4.2 mmol/L (3.5-5.1)
[2018-09-26 12:11] LABS: Glucose,Whole Blood 124 mg/dL (75-99)
[2018-09-26] MEDS ORDERED: BUPRENORPHINE TOPICAL SCH (13:00)
[2018-09-26] MEDS: PROPRANOLOL 40 MG TAB PO SCH (13:44)
[2018-09-26 15:10] VITALS: BP 180/70; RESP 16; TEMP 98.6
[2018-09-26] MEDS ORDERED: METOPROLOL TARTRATE 25 MG TAB PO SCH (21:00)
--- NOTE | 2018-10-01 10:21 | DS ---
DISCHARGE SUMMARY DATE OF ADMISSION: 09/23/2018 DATE OF DISCHARGE: 09/26/2018 FINAL DIAGNOSES: 1. Acute T11 fracture secondary to fall. 2. 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 3. Baseline gait dysfunction, using a walker. 4. Hyperlipidemia. 5. Primary osteoarthritis. 6. Hypothyroid. 7. Acute metabolic encephalopathy from pain medications and baclofen. 8. Chronic idiopathic Parkinson disease. 9. Acute renal failure, prerenal from poor oral intake. CONSULTATION: Dr. King from [facility] HOSPITAL COURSE: This pleasant 88-year-old patient who was cared by her daughter, has had chronic low back pain and again fell about 5 to 6 days ago backwards. There was no bowel or urine involvement. The patient presented with increased pain. CT scan did show fractures of multiple age including more acute on T11. Discussions were held with the family. The daughter does want to take her home as she has done ECF care before. Medications were adjusted. The patient doing reasonably well given condition at the time of discharge. Tolerating some diet. PHYSICAL EXAMINATION: On examination, temperature 98.6, pulse 71, respiration 16, blood pressure 150/70, pulse ox 96% on room air. GENERAL APPEARANCE: Lying in bed, answering simple questions. RESPIRATORY: Effort normal. LUNGS: Fair entry. CARDIOVASCULAR: First and second sounds normal. INVESTIGATIONS: Sodium 132, potassium 4.2, BUN 19, creatinine 0.87. DISCHARGE MEDICATIONS: 1. Amantadine 100 mg p.o. daily. 2. Lipitor 10 mg q.h.s. 3. Buprenorphine 5 one patch topical Saturday. 4. Sinemet 25/100 two tablets a.c. b.i.d. and Sinemet CR 50/200 one tablet a.c. b.i.d. 5. Vitamin D3, 1000 units p.o. daily. 6. Ginkgo 60 mg p.o. daily. 7. Ativan 0.5 mg daily p.r.n. 8. Synthroid 50 mcg p.o. daily. 9. Vitamin E 1000 units p.o. daily. 10.Tylenol 650 mg q.6 p.r.n. 11.Baclofen 5 mg p.o. t.i.d. p.r.n. 12.Lopressor 25 mg b.i.d. 13.Ultram 50 mg q.6 p.r.n. On the day of discharge, patient's medications including Ultram for pain was discussed. Also will use baclofen on a p.r.n. basis. Propranolol, which is very short-acting was discontinued and a longer-acting Lopressor was added. Also patient had a Start Talking Form was done and also MAPS search was done. [facility] will be . The patient also got a TLSO brace. Discussion discharge plan more than 35 minutes. The patient for comfort will need a hospital bed so she can be positioned accordingly. Follow up with Dr. Woo in 3 days. [place]. Follow up with K[facility] in 2 weeks. [facility] is involved. MMODL / IJN: [id number] /
== END 2018-09-26 17:08 | disposition home health service (06) | DRG 551 ==
LOC: EC 03:15 → 4SSUR 06:13 → 4MS4W 06:18
PROVIDERS: ADMIT Hospitalist; ATTEND Hospitalist
DX: S22.089A Unspecified fracture of T11-T12 vertebra, initial encounter for closed fracture (principal); G92 Toxic encephalopathy; S22.31XA Fracture of one rib, right side, initial encounter for closed fracture; N17.9 Acute kidney failure, unspecified; M48.54XA Collapsed vertebra, not elsewhere classified, thoracic region, initial encounter for fracture; E11.22 Type 2 diabetes mellitus with diabetic chronic kidney disease; G20 Parkinson's disease; N18.3 Chronic kidney disease, stage 3 (moderate); M43.17 Spondylolisthesis, lumbosacral region; M85.80 Other specified disorders of bone density and structure, unspecified site; M19.91 Primary osteoarthritis, unspecified site; G89.29 Other chronic pain; E78.5 Hyperlipidemia, unspecified; T42.8X5A Adverse effect of antiparkinsonism drugs and other central muscle-tone depressants, initial encounter; E03.9 Hypothyroidism, unspecified; Z79.890 Hormone replacement therapy; Z79.899 Other long term (current) drug therapy; Z90.49 Acquired absence of other specified parts of digestive tract; Z90.710 Acquired absence of both cervix and uterus; Z98.42 Cataract extraction status, left eye; Z98.41 Cataract extraction status, right eye; W18.39XA Other fall on same level, initial encounter; Z91.81 History of falling; Y92.009 Unspecified place in unspecified non-institutional (private) residence as the place of occurrence of the external cause; Z82.49 Family history of ischemic heart disease and other diseases of the circulatory system; Z88.8 Allergy status to other drugs, medicaments and biological substances
CPT/HCPCS: 36415; 70450; 72128; 72131; 80048; 80053; 81001; 84484; 85025; 99284

== ENCOUNTER 2019-01-31 11:08 | Emergency (ER) | payer MEDICARE ==
[2019-01-31 11:23] LABS: Glucose,Whole Blood 118 mg/dL (75-99)
[2019-01-31 11:26] VITALS: TEMP 98
[2019-01-31] MEDS ORDERED: SODIUM CHLORIDE 0.9% 1,000 ML IV ONE (11:34)
--- NOTE | 2019-01-31 11:40 | ED ---
General Adult HPI - General Chief complaint: Altered Mental Status Stated complaint: Altered Time Seen by Provider: 01/31/19 11:16 Source: family, RN notes reviewed Mode of arrival: wheelchair Limitations: altered mental status - History of Present Illness Initial comments: Patient is a pleasant 88-year-old female presenting to the emergency department with family with concerns for confusion. Patient does have Parkinson's. Patient has been more confused lately. Patient had confusion week or so ago and was taken off bupropion patch. Patient had increase in her chronic back pain and patch was placed again yesterday. Patient slept most the day yesterday and seemed more confused last night. Patient was less talkative. This morning symptoms seemed worse. Patient had limited verbal capability. She was able to state some names. Patient has chronic shaking/tremor associated with her Parkinson's. No new weakness associated. Family states patient frequently gets very confused at nighttime. Patient is not able to offer much significant h istory. History is obtained by family. - Related Data Home Medications Medication Instructions Recorded Confirmed Amantadine HCl [Symmetrel] 100 mg PO QAM 09/23/18 01/31/19 Atorvastatin Calcium [Lipitor] 10 mg PO HS 09/23/18 01/31/19 Buprenorphine [Buprenorphine 5 1 patch TOPICAL FR 09/23/18 01/31/19 MCG/HR] Carbidopa-Levodopa 25-100 mg 1 tab PO AC-BID 09/23/18 01/31/19 [Sinemet 25-100 mg] Carbidopa-Levodopa ER 50-200Mg 1 tab PO AC-LUNCH 09/23/18 01/31/19 [Sinemet CR 50-200 mg] Ginkgo Biloba [place] Extract [Ginkgo] 60 mg PO DAILY 09/23/18 01/31/19 LORazepam [Ativan] 0.5 mg PO DAILY PRN 09/23/18 01/31/19 Levothyroxine Sodium [Synthroid] 50 mcg PO HS 09/23/18 01/31/19 Vitamin E 1,000 unit PO DAILY 09/23/18 01/31/19 Pioglitazone [Actos] 15 mg PO DAILY 01/31/19 01/31/19 Propranolol [Inderal] 40 mg PO DAILY 01/31/19 01/31/19 Allergies Allergy/AdvReac Type Severity Reaction Status Date / Time estradiol [From Estrace] Allergy Dyspnea Verified 01/31/19 11:42 Review of Systems ROS Statement: Those systems with pertinent positive or pertinent negative responses have been documented in the HPI. ROS Other: All systems not noted in ROS Statement are negative. Limitations: ROS unobtainable due to patients medical condition Past Medical History Past Medical History: Diabetes Mellitus, Hyperlipidemia, Osteoarthritis (OA), Renal Disease, Thyroid Disorder Additional Past Medical History / Comment(s): Occasional confusion, mid and low back chronic pain since fall 5 yrs ago, chronic R leg pain, NIDDM type II, hypothyroid, CKD-mild, arthritis in her back. History of Any Multi-Drug Resistant Organisms: None Reported Past Surgical History: Appendectomy, Cholecystectomy, Hysterectomy Additional Past Surgical History / Comment(s): Colonoscopies-normal, bilateral cataracts removed. Additional Past Anesthesia/Blood Transfusion Reaction / Comment(s): Anesthesia makes pt have increased weakness for awhile. Pt has received blood in past without reaction. Past Psychological History: Anxiety Smoking Status: Never smoker - Past Family History Father Additional Family Medical History / Comment(s): Father had heart trouble and l ived to be 87yrs. Mother Family Medical History: No Reported History Additional Family Medical History / Comment(s): Mother was healthy and lived to be 84 yrs old. General Exam Limitations: altered mental status General appearance: alert, in no apparent distress, other (Patient does have significant resting tremor. Family states this is unchanged from chronic.) Head exam: Present: atraumatic Eye exam: Present: normal appearance, PERRL, EOMI. Absent: nystagmus ENT exam: Present: normal oropharynx Neck exam: Present: normal inspection Respiratory exam: Present: normal lung sounds bilaterally Cardiovascular Exam: Present: regular rate, normal rhythm GI/Abdominal exam: Present: soft. Absent: tenderness Extremities exam: Present: normal inspection Neurological exam: Present: alert. Absent: motor sensory deficit Expanded Neurological exam: Present: protecting the airway Patient oriented to: Present: person. Absent: place, time Cranial nerves: EOM's Intact: Normal Motor strength exam: RUE: 5, LUE: 5, RLE: 5, LLE: 5 Eye Response: (4) open spontaneously Motor Response: (6) obeys commands Verbal Response: (3) inappropriate words Psychiatric exam: Present: normal affect, normal mood Skin exam: Present: normal color. Absent: rash Course Vital Signs 01/31/19 01/31/19 11:11 14:03 Temperature 98 F Pulse Rate 105 H 95 Respiratory 20 20 Rate Blood Pressure 156/53 122/102 O2 Sat by Pulse 97 96 Oximetry EKG Findings - EKG Comments: EKG Findings:: Sinus tach at 105 with premature supraventricular complexes. CA 168. QRS 66. QT 344. QTC 454. Normal axis. Normal QRS. No acute ST change. Motion artifact is present. Medical Decision Making - Medical Decision Making Patient reevaluated without much improvement of symptoms. Family updated. Family does request [facility] if transfer is needed. No neurology is available at this time. Case was discussed with Dr. lozoya at [facility], who will accept transfer. - Lab Data Result diagrams: 01/31/19 11:18 01/31/19 11:18 Lab Results 01/31/19 01/31/19 01/31/19 Range/Units 11:12 11:18 11:18 WBC 9.1 (3.8-10.6) k/uL RBC 4.03 (3.80-5.40) m/uL Hgb 12.9 (11.4-16.0) gm/dL Hct 40.0 (34.0-46.0) % MCV 99.4 (80.0-100.0) fL MCH 31.9 (25.0-35.0) pg MCHC 32.1 (31.0-37.0) g/dL RDW 13.5 (11.5-15.5) % Plt Count 302 (150-450) k/uL Neutrophils % 65 % Lymphocytes % 25 % Monocytes % 5 % Eosinophils % 2 % Basophils % 1 % Neutrophils # 5.9 (1.3-7.7) k/uL Lymphocytes # 2.3 (1.0-4.8) k/uL Monocytes # 0.4 (0-1.0) k/uL Eosinophils # 0.2 (0-0.7) k/uL Basophils # 0.1 (0-0.2) k/uL PT (9.0-12.0) sec INR (<1.2) APTT (22.0-30.0) sec Sodium 140 (137-145) mmol/L Potassium 4.7 (3.5-5.1) mmol/L Chloride 108 H (98-107) mmol/L Carbon Dioxide 21 L (22-30) mmol/L Anion Gap 11 mmol/L BUN 29 H (7-17) mg/dL Creatinine 0.90 (0.52-1.04) mg/dL Est GFR (CKD-EPI)AfAm 67 (>60 ml/min/1.73 sqM) Est GFR (CKD-EPI)NonAf 58 (>60 ml/min/1.73 sqM) Glucose 125 H (74-99) mg/dL POC Glucose (mg/dL) 118 H (75-99) mg/dL POC Glu Counter Weigher ID Godfrey, Leonidas Calcium 9.9 (8.4-10.2) mg/dL Total Bilirubin 0.4 (0.2-1.3) mg/dL AST 17 (14-36) U/L ALT 17 (9-52) U/L Alkaline Phosphatase 72 (38-126) U/L Troponin I (0.000-0.034) ng/mL Total Protein 6.4 (6.3-8.2) g/dL Albumin 4.0 (3.5-5.0) g/dL Urine Color Urine Appearance (Clear) Urine pH (5.0-8.0) Ur Specific [place] (1.001-1.035) Urine Protein (Negative) Urine Glucose (UA) (Negative) Urine Ketones (Negative) Urine Blood (Negative) Urine Nitrite (Negative) Urine Bilirubin (Negative) Urine Urobilinogen (<2.0) mg/dL Ur Leukocyte Esterase (Negative) 01/31/19 01/31/19 01/31/19 Range/Units 11:18 11:18 13:57 WBC (3.8-10.6) k/uL RBC (3.80-5.40) m/uL Hgb (11.4-16.0) gm/dL Hct (34.0-46.0) % MCV (80.0-100.0) fL MCH (25.0-35.0) pg MCHC (31.0-37.0) g/dL RDW (11.5-15.5) % Plt Count (150-450) k/uL Neutrophils % % Lymphocytes % % Monocytes % % Eosinophils % % Basophils % % Neutrophils # (1.3-7.7) k/uL Lymphocytes # (1.0-4.8) k/uL Monocytes # (0-1.0) k/uL Eosinophils # (0-0.7) k/uL Basophils # (0-0.2) k/uL PT 9.5 (9.0-12.0) sec INR 0.9 (<1.2) APTT 22.3 (22.0-30.0) sec Sodium (137-145) mmol/L Potassium (3.5-5.1) mmol/L Chloride (98-107) mmol/L Carbon Dioxide (22-30) mmol/L Anion Gap mmol/L BUN (7-17) mg/dL Creatinine (0.52-1.04) mg/dL Est GFR (CKD-EPI)AfAm (>60 ml/min/1.73 sqM) Est GFR (CKD-EPI)NonAf (>60 ml/min/1.73 sqM) Glucose (74-99) mg/dL POC Glucose (mg/dL) (75-99) mg/dL POC Glu Counter Weigher ID Calcium (8.4-10.2) mg/dL Total Bilirubin (0.2-1.3) mg/dL AST (14-36) U/L ALT (9-52) U/L Alkaline Phosphatase (38-126) U/L Troponin I <0.012 (0.000-0.034) ng/mL Total Protein (6.3-8.2) g/dL Albumin (3.5-5.0) g/dL Urine Color Yellow Urine Appearance Clear (Clear) Urine pH 5.5 (5.0-8.0) Ur Specific [place] 1.020 (1.001-1.035) Urine Protein Negative (Negative) Urine Glucose (UA) Negative (Negative) Urine Ketones Negative (Negative) Urine Blood Negative (Negative) Urine Nitrite Negative (Negative) Urine Bilirubin Negative (Negative) Urine Urobilinogen <2.0 (<2.0) mg/dL Ur Leukocyte Esterase Negative (Negative) - Radiology Data Radiology results: report reviewed (Computed tomography scan the brain reveals no acute intercranial abnormality. Degenerative changes. Chronic left maxillary sinus), image reviewed (Chest x-ray shows cardiomegaly. Mild i nterstitial changes.) Disposition Clinical Impression: Altered mental status Disposition: OTHER INSTITUTION NOT DEFINED Is patient prescribed a controlled substance at d/c from ED?: No Referrals: Alonso Zamorano MD [Primary Care Provider] - 1-2 days Time of Disposition: 14:46 - Out of Hospital Transfer - Req. Specs Out of Hospital Transfer - Requested Specifics: Other Emergency Center
[2019-01-31 11:46] LABS: Basophils # (A) 0.1 k/uL (0-0.2); Basophils % (A) 1 %; Eosinophils # (A) 0.2 k/uL (0-0.7); Eosinophils % (A) 2 %; HGB 12.9 gm/dL (11.4-16.0); Lymphocytes # (A) 2.3 k/uL (1.0-4.8); Lymphocytes % (A) 25 %; MCH 31.9 pg (25.0-35.0); MCHC 32.1 g/dL (31.0-37.0); MCV 99.4 fL (80.0-100.0); Mean Platelet Volume 7.4; Monocytes # (A) 0.4 k/uL (0-1.0); Monocytes % (A) 5 %; Neutrophils # (A) 5.9 k/uL (1.3-7.7); Neutrophils % (A) 65 %; Platelet Count 302 k/uL (150-450); RBC 4.03 m/uL (3.80-5.40); RDW 13.5 % (11.5-15.5); WBC 9.1 k/uL (3.8-10.6)
[2019-01-31 12:00] LABS: Calcium 9.9 mg/dL (8.4-10.2); Potassium 4.7 mmol/L (3.5-5.1); Total Bilirubin 0.4 mg/dL (0.2-1.3); Total Protein 6.4 g/dL (6.3-8.2)
[2019-01-31 12:01] LABS: INR 0.9 (<1.2)
[2019-01-31 12:02] LABS: Partial Thromboplastin Time 22.3 sec (22.0-30.0); Prothrombin Time 9.5 sec (9.0-12.0)
--- NOTE | 2019-01-31 12:06 | XR ---
EXAMINATION TYPE: XR chest 2V DATE OF EXAM: 01/31/2019 HISTORY: altered mental status. REFERENCE: Previous study dated 11/30/2010. FINDINGS: The heart is minimally enlarged. There is mild vascular congestion and interstitial change. Pleural spaces appear clear. IMPRESSION: MILD CARDIOMEGALY. PLEASE CORRELATE FOR MILD CONGESTIVE HEART FAILURE.
--- NOTE | 2019-01-31 12:19 | CT ---
EXAMINATION TYPE: CT brain wo con DATE OF EXAM: 01/31/2019 COMPARISON: Previous study dated 09/24/2018 HISTORY: Change in mental status CT DLP: 1099.40 mGycm Automated exposure control for dose reduction was used. FINDINGS: There are generalized changes of sulcal prominence and ventriculomegaly, compatible with atrophic lucy nge. There is diffuse periventricular white matter lucency, compatible with small vessel ischemic lucy nge. There is no acute focal lesion, mass effect or midline shift identified. I do not see evidence o f intracranial blood. There is some chronic mucoperiosteal thickening involving the left maxillary sinus. The remainder the paranasal sinuses and mastoids are clear. The bony calvarium is intact. IMPRESSION: 1. NO ACUTE INTRACRANIAL ABNORMALITY. 2. DEGENERATIVE CHANGE. 3. CHRONIC, LEFT MAXILLARY SINUS MUCOSAL DISEASE.
[2019-01-31] MEDS ORDERED: SODIUM CHLORIDE 0.9% 500 ML 500 ML IV STA (12:27)
[2019-01-31 14:29] LABS: Appearance,Urine Clear (Clear); Bilirubin,Urine Negative (Negative); Blood,Urine Negative (Negative); Color,Urine Yellow; Glucose,Urine (UA) Negative (Negative); Ketones,Urine Negative (Negative); Leukocyte Esterase,Urine Negative (Negative); Nitrite,Urine Negative (Negative); PH, Urine 5.5 (5.0-8.0); Protein,Urine Negative (Negative); Urobilinogen,Urine <2.0 mg/dL (<2.0)
[2019-01-31 15:20] VITALS: BP 154/70; PULSE 101; RESP 26
== END 2019-01-31 15:54 | disposition short-term general hospital (02) ==
LOC: EC 11:08
DX: R41.0 Disorientation, unspecified (principal); I51.7 Cardiomegaly; M51.9 Unspecified thoracic, thoracolumbar and lumbosacral intervertebral disc disorder; G20 Parkinson's disease; G89.29 Other chronic pain; M54.9 Dorsalgia, unspecified; E78.5 Hyperlipidemia, unspecified; E03.9 Hypothyroidism, unspecified; E11.22 Type 2 diabetes mellitus with diabetic chronic kidney disease; N18.9 Chronic kidney disease, unspecified; Z88.8 Allergy status to other drugs, medicaments and biological substances; Z79.84 Long term (current) use of oral hypoglycemic drugs; Z79.890 Hormone replacement therapy; Z79.899 Other long term (current) drug therapy; Z82.49 Family history of ischemic heart disease and other diseases of the circulatory system
CPT/HCPCS: 36415; 70450; 71046; 80053; 81003; 84484; 85025; 85610; 85730; 87040; 93005; 96360; 96361; 99285